=== PATIENT | male | born 1985 | race Caucasian/White ===

== ENCOUNTER → 2017-09-24 | Outpatient (CLI) | payer BC ==
[~2017-09-24] VITALS: Ht 175.3 cm; Wt 108.5 kg
[2017-09-24 13:59] VITALS: BP 137/84; PULSE 106; Ht 175.3 cm; Wt 108.5 kg
== END | disposition home or self-care (01) ==
LOC: C.NEUR 13:45
PROVIDERS: ATTEND Internal Medicine Pulmonary Disease
DX: G47.33 Obstructive sleep apnea (adult) (pediatric) (principal); F51.12 Insufficient sleep syndrome